=== PATIENT | male | born 1990 | race Caucasian/White ===

== ENCOUNTER 2023-12-24 12:47 | Emergency (ER) | payer OTHER, SELFPAY ==
[2023-12-24 13:02] VITALS: BP 150/100; PULSE 78; RESP 18; TEMP 36.1; O2SAT 98; BMI 30.7
--- NOTE | 2023-12-24 13:10 | ED_ITS ---
HPI - General Adult General Chief complaint: Eye Problems Stated complaint: something in left eye Time Seen by Provider: 12/24/23 13:05 History of Present Illness HPI narrative: Patient started noticing something in his eye as of yesterday afternoon. Redness, irritated. Not sure what got in there. 33-year-old man presenting to the emergency department with concern of something in his eye. Has been quite uncomfortable. 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 He thinks something got into his eye or least noticed yesterday afternoon. Other than irritating is not obscuring vision. Some drainage. Not purulent. He apologizes already that is often resistant to manipulation of/cares of the eye. Has trouble even placing his own drops. Related Data Home Medications Medication Instructions Recorded Confirmed No Known Home Medications 12/24/23 12/24/23 Allergies Allergy/AdvReac Type Severity Reaction Status Date / Time No Known Drug Allergies Allergy Verified 12/24/23 13:02 Review of Systems Status of ROS: Reports: 6 or more systems reviewed and unremarkable except as noted in History and below PFSH PFSH Social History Smoking Status: Unknown if ever smoked Exam Narrative: Exam Narrative: Pleasant. Mild rhinorrhea/sounds a little congested. Calm. Breathing easily. No periorbital redness noted. Initial the left eye does show a small black sp elisabeth at about the 9 o'clock position on the left cornea just outside/medial to the pupil. Would presume there is some metal here given history. Const: Vital Signs, click to edit/add: Vital Signs - 24 hr 12/24/23 13:02 Temperature 97.0 F L Pulse Rate [Pulse Oximeter] 78 Respiratory Rate 18 Blood Pressure [Ri ght Upper Arm] 150/100 H Pulse Oximetry 98 Oxygen Delivery Me thod Room Air Documenting provider has reviewed patient's vital signs: yes Course Vital Signs Vital signs: Initial Vital Signs Temperature 97.0 F L 12/24/23 13:02 Temperature Source Temporal Artery Scan 12/24/23 13:02 Pulse Rate 78 12/24/23 13:02 Pulse Rhythm Regular 12/24/23 13:02 Respiratory Rate 18 12/24/23 13:02 Blood Pressure 150/100 H 12/24/23 13:02 Blood Pressure Mean 116 H 12/24/23 13:02 Blood Pressure Position Sitting 12/24/23 13:02 Pulse Oximetry 98 12/24/23 13:02 Oxygen Delivery Method Room Air 12/24/23 13:02 Vital Signs Temperature 97.0 F L 12/24/23 13:02 Pulse Rate 78 12/24/23 13:02 Respiratory Rate 18 12/24/23 13:02 Blood Pressure 150/100 H 12/24/23 13:02 Pulse Oximetry 98 12/24/23 13:02 Oxygen Delivery Method Room Air 12/24/23 13:02 Temperature 97.0 F L 12/24/23 13:02 Pulse Rate 78 12/24/23 13:02 Respiratory Rate 18 12/24/23 13:02 Blood Pressure 150/100 H 12/24/23 13:02 Pulse Oximetry 98 12/24/23 13:02 Oxygen Delivery Method Room Air 12/24/23 13:02 Medical Decision Making MDM Narrative Medical decision making narrative: Placed tetracaine. Fluorescein dye staining. No other significant uptake is noted in the eye. Everted lids. Adequate numbing achieved but did re-dose tetracaine during course. Mr. Lino was very helpful with eyelid retraction under magnification, using cotton swab to remove small amount of the spec I think. Majority remains. Used 18 gauge needle then to pick at this in the cornea. Did manage to remove it. On reexamination though there is a rust ring. While not affecting his vision, it is quite noticeable. Tested but not able to probably dilate pupils enough to be sure that would not be in vision/visualized in the future. And he would like it removed if possible. Using [place] brush was able to remove the majority of it. No complications. Tolerated well. Of course ulceration remains - 3/32 of an inch approximately. Placed erythromycin ointment from stock. See patient discharge plan further discussion Discharge Plan Discharge Clinical Impression: Eye foreign body, Corneal rust ring of left eye Patient Disposition: Home, Self-Care Condition: Improved Additional Instructions: You did well today. Erythromycin ointment as prescribed. Can take up to 800 mg of ibuprofen up to 1000 mg of acetaminophen per dose. Alternative to the ibuprofen might be up to 500 mg of naproxen 2 times daily. I am also prescribing some Percocet from [facility]. Keep in mind that each tablet of Percocet contains 325 mg of acetaminophen. Be seen for uncontrolled pain, increasing redness and swelling around your eye, purulent drainage. If residual staining in your cornea might pose a problem in the future, can follow up with Optometry/Ophthalmology for re-evaluation. Please check on your tetanus immunization status. If it has been more than 10 years, would recommend updating. Prescriptions: No Action No Known Home Medications Stand Alone Forms: [facility] Info Instructions
== END 2023-12-24 14:36 | disposition home or self-care (01) ==
LOC: ED 14:07
PROVIDERS: Emergency Provider Family Medicine; PCP Family Medicine
DX: T15.02XA Foreign body in cornea, left eye, initial encounter (principal)
CPT/HCPCS: 65205; 99283; 99284; A9270